=== PATIENT | male | born 1955 | race Caucasian/White ===

== ENCOUNTER → 2017-10-25 | Outpatient (CLI) | payer OTHER ==
[2017-10-25] MEDS: ALBUTEROL SULFATE 2.5 MG/3 ML NEBU. NEB (08:36)
== END | disposition home or self-care (01) ==
LOC: PF 07:50
DX: M41.86 Other forms of scoliosis, lumbar region (principal); M48.07 Spinal stenosis, lumbosacral region
CPT/HCPCS: 72100; 94060; J7613